=== PATIENT | female | born 1930 | race Hispanic/Latino ===

== ENCOUNTER → 2017-07-30 | Outpatient (CLI) | payer OTHER, MEDICARE ==
[~2017-07-30] MED LIST: BRIMONIDINE OU; CLIN300C9 PO; DEXL60CA3 PO; DONE10TA43 PO; DONE5TAB26 PO; LEVO88TA7 PO; LORA0.5T2 PO; MEMA10TA11 PO; MEMA10TA20 PO; MIRALAX PO; ONDA4TAB9 PO; RISP0.5T50 PO; SENN-175 PO; SERT25TA5 PO; SERT50TA12 PO; SIMV20TA6 PO; TRAM50TA4 PO; VITAMIN B12 PO; XALA2.5OS OU
[2017-07-30 15:03] LABS: CREATININE 1.7 mg/dL (0.5-1.5)
== END | disposition home or self-care (01) ==
LOC: LAB 13:54
PROVIDERS: ATTEND Urology
DX: N39.0 Urinary tract infection, site not specified (principal)
CPT/HCPCS: 36415; 82565; 84520

== ENCOUNTER → 2017-08-28 | Outpatient (CLI) | payer OTHER, MEDICARE ==
[~2017-08-28] MED LIST changes: +FUROSEMIDE 10 MG/ML 2ML VIAL ONE
== END | disposition home or self-care (01) ==
LOC: RAH 14:32
PROVIDERS: ATTEND Urology
DX: R39.14 Feeling of incomplete bladder emptying (principal)
CPT/HCPCS: 78708; A9562; J1940

== ENCOUNTER 2017-12-26 22:47 | Emergency (ER) | payer OTHER, MEDICARE ==
[~2017-12-26 22:47] MED LIST changes: -CLIN300C9 PO; -DONE10TA43 PO; -FUROSEMIDE 10 MG/ML 2ML VIAL ONE; -MEMA10TA20 PO; -ONDA4TAB9 PO; -SERT25TA5 PO; -TRAM50TA4 PO
[2017-12-26] MEDS ORDERED: TETANUS/DIPHTHERIA TOXOID [ADULT] 0.5 ML VIAL IM ONE (23:37)
[2017-12-27] MEDS ORDERED: TRAMADOL HCL 50 MG TABLET ONE (00:15)
[2017-12-27 00:26] LABS: BASOPHILS % (AUTO) 0.4 % (0.0-5.0); EOSINOPHILS % (AUTO) 0.5 % (0.0-8.0); HEMATOCRIT 32.5 % (36-48); LYMPHOCYTES % (AUTO) 5.6 % (21.0-51.0); MEAN CORPUSCULAR HEMOGLOBIN 29.8 pg (27.0-33.0); MEAN CORPUSCULAR HGB CONC 34.4 g/dL (32.0-36.0); MEAN CORPUSCULAR VOLUME 86.8 fL (79-99); NEUTROPHILS % (AUTO) 86.5 % (40.0-77.0); PLATELET COUNT (AUTO) 241 K/uL (130-400); RED BLOOD CELL COUNT(AUTO) 3.75 MIL/uL (4.00-5.50); RED CELL DISTRIBUTION WIDTH 13.7 % (11.0-15.5); WHITE BLOOD COUNT (AUTO) 13.4 K/uL (4.8-10.8)
[2017-12-27] MEDS ORDERED: NEOMY SULF/BACITRA/POLYMYXIN B 1 EACH PACKET TP ONE (00:26)
[2017-12-27 00:37] LABS: CREATININE 1.4 mg/dL (0.5-1.5); POTASSIUM 4.7 mmol/L (3.5-5.1)
[2017-12-27 00:39] LABS: INR 1.01 (0.85-1.15); PARTIAL THROMBOPLASTIN TIME 24.2 SEC (26.3-35.5); PROTHROMBIN TIME 10.6 SEC (9.6-11.6)
[2017-12-27 00:51] LABS: ALBUMIN 3.7 g/dL (3.5-5.0); BILIRUBIN,TOTAL 0.3 mg/dL (0.2-1.0); CREATINE KINASE MB 7.6 ng/mL (0.5-3.6); TOTAL PROTEIN, SERUM 7.2 g/dL (6.0-8.3)
[2017-12-27] MEDS ORDERED: CLINDAMYCIN HCL 150 MG CAP ONE (01:11)
[2018-01-04] MEDS ORDERED: ONDA4TAB9 PO (17:20)
[2018-01-04] MEDS ORDERED: SERT25TA5 PO (17:20)
[2018-01-04] MEDS ORDERED: LORA0.5T2 PO (17:20)
[2018-01-04] MEDS ORDERED: DEXL60CA3 PO (17:20)
[2018-01-04] MEDS ORDERED: MIRALAX PO (17:20)
[2018-01-04] MEDS ORDERED: MEMA10TA20 PO (17:20)
[2018-01-04] MEDS ORDERED: TRAM50TA4 PO (17:20)
[2018-01-04] MEDS ORDERED: DONE10TA43 PO (17:20)
[2018-01-04] MEDS ORDERED: SIMV20TA6 PO (17:20)
[2018-01-04] MEDS ORDERED: CLIN300C9 PO (17:20)
[2018-01-11] MEDS ORDERED: TRAM1TAB PO (09:27)
[2018-01-11] MEDS ORDERED: CLIN300C9 PO (09:27)
== END 2017-12-27 02:19 | disposition home or self-care (01) ==
LOC: EDH 22:47
DX: S62.615A Displaced fracture of proximal phalanx of left ring finger, initial encounter for closed fracture (principal); S62.617A Displaced fracture of proximal phalanx of left little finger, initial encounter for closed fracture; E78.5 Hyperlipidemia, unspecified; M81.0 Age-related osteoporosis without current pathological fracture; Z88.1 Allergy status to other antibiotic agents; Z88.0 Allergy status to penicillin; Z88.6 Allergy status to analgesic agent; Z88.8 Allergy status to other drugs, medicaments and biological substances; Z91.041 Radiographic dye allergy status; Z79.1 Long term (current) use of non-steroidal anti-inflammatories (NSAID); W01.0XXA Fall on same level from slipping, tripping and stumbling without subsequent striking against object, initial encounter; Y93.89 Activity, other specified; Y92.89 Other specified places as the place of occurrence of the external cause; Y99.8 Other external cause status
CPT/HCPCS: 29125; 36415; 70450; 71045; 72125; 73130; 80053; 82550; 82553; 84484; 85025; 85610; 85730; 90471; 90714; 93005